=== PATIENT | male | born 2000 | race Hispanic/Latino ===

== ENCOUNTER 2019-02-10 00:14 | Emergency (ER) | payer SELFPAY ==
[2019-02-10] MEDS ORDERED: Lidocaine 1% 20 ML MDV ONE (00:25)
[2019-02-10] MEDS ORDERED: Bacitracin Zinc 1 Packet ONE (00:55)
== END 2019-02-10 01:14 | disposition home or self-care (01) ==
LOC: SCSER 00:14
DX: S61.211A Laceration without foreign body of left index finger without damage to nail, initial encounter (principal); W26.0XXA Contact with knife, initial encounter
CPT/HCPCS: 12001; J2001

== ENCOUNTER 2020-04-02 09:58 | Emergency (ER) | payer OTHER, SELFPAY ==
[2020-04-03 14:22] LABS: SARS-CoV-2 MS2 Positive; SARS-CoV-2 N Gene Negative; SARS-CoV-2 S Gene Negative; SARS-CoV-2 orf1ab Negative
== END 2020-04-02 10:35 | disposition home or self-care (01) ==
LOC: ERS 09:58
DX: Z20.828 Contact with and (suspected) exposure to other viral communicable diseases (principal)
CPT/HCPCS: 87635; 99283; U0003

== ENCOUNTER 2023-07-04 09:57 | Emergency (ER) | payer SELFPAY ==
[2023-07-04] MEDS ORDERED: Ketorolac Tromethamine 30 MG/ML VIAL ONE (10:27)
== END 2023-07-04 15:15 | disposition home or self-care (01) ==
LOC: ERS 09:57
DX: S00.83XA Contusion of other part of head, initial encounter (principal); Y04.8XXA Assault by other bodily force, initial encounter
CPT/HCPCS: 70110; 70450; 70480; 70486; 72125; J1885